=== PATIENT | female | born 1960 | race Caucasian/White ===

== ENCOUNTER 2017-01-29 10:36 | Emergency (ER) | payer MEDICAID ==
[~2017-01-29] VITALS: Ht 157.5 cm; Wt 57.0 kg
[2017-01-29] MEDS ORDERED: IBUP-2028 PO (10:59)
[2017-01-29] MEDS ORDERED: GLIP10TA10 PO (10:59)
[2017-01-29] MEDS ORDERED: ATOR20TA65 PO (10:59)
[2017-01-29] MEDS ORDERED: METF500T4 PO (10:59)
[2017-01-29] MEDS ORDERED: ACET-2178 PO (10:59)
[2017-01-29] MEDS ORDERED: KETOROLAC 30MG/ML VIAL IV STA (11:19)
[2017-01-29] MEDS ORDERED: SODIUM CHLORIDE 0.9% 1,000 ML IV ONE (11:19)
[2017-01-29 11:39] LABS: BASOPHILS % 0.5 % (0.0-2.0); EOSINOPHILS % 1.3 % (0.0-5.0); HEMATOCRIT. 41.7 % (36.0-48.0); HEMOGLOBIN. 14.3 g/dL (12.0-16.0); MEAN CORPUSCULAR HEMOGLOBIN 30.6 pg (28.0-32.0); MEAN CORPUSCULAR VOLUME 89.1 fL (81.0-99.0); MEAN PLATELET VOLUME 8.5 fl (7.4-10.4); MONOCYTES % 5.6 % (2.0-8.0); NEUTROPHILS % 61.6 % (40.0-76.0); PLATELET 244 x1000/uL (130-400); RED BLOOD CELL COUNT 4.68 mill/uL (4.2-5.4); RED CELL DISTRIBUTION WIDTH 12.8 % (11.6-14.6)
[2017-01-29 11:46] LABS: PROTHROMBIN TIME 10.9 sec (9.4-11.6)
[2017-01-29 11:53] LABS: CARBON DIOXIDE 27 mEq/L (21-32); CHLORIDE 103 mEq/L (98-107); TROPONIN I < 0.02 ng/mL (0.00-0.04)
[2017-01-29] MEDS ORDERED: GADOBENATE DIMEGLUMINE 529 MG/ML 10ML IV ONE (13:01)
[2017-01-29] MEDS ORDERED: MECLIZINE 25MG TABLET PO ONE (14:00)
[2017-01-29 14:03] VITALS: BP 125/81
[2017-01-29 14:33] LABS: CLARITY URINE CLEAR (CLEAR); COLOR URINE YELLOW (YELLOW); GLUCOSE URINE NEGATIVE (NEGATIVE); KETONES URINE NEGATIVE (NEGATIVE); LEUKOCYTE ESTERASE URINE NEGATIVE (NEGATIVE); NITRITE URINE NEGATIVE (NEGATIVE); OCCULT BLOOD URINE NEGATIVE (NEGATIVE); PROTEIN URINE NEGATIVE (NEGATIVE); SPECIFIC GRAVITY URINE 1.008 (1.005-1.030); UROBILINOGEN URINE 0.2 E.U./dL (0.2-1.0)
== END 2017-01-29 14:07 | disposition home or self-care (01) ==
LOC: ER 10:42
DX: R51 Headache (principal); E11.65 Type 2 diabetes mellitus with hyperglycemia; I10 Essential (primary) hypertension; E78.00 Pure hypercholesterolemia, unspecified; G51.0 Bell's palsy; F17.210 Nicotine dependence, cigarettes, uncomplicated; I45.10 Unspecified right bundle-branch block; Z88.6 Allergy status to analgesic agent; Z91.012 Allergy to eggs; Z98.51 Tubal ligation status; Z79.84 Long term (current) use of oral hypoglycemic drugs
CPT/HCPCS: 36415; 70553; 80053; 81003; 83880; 84484; 85025; 85610; 85651; 87086; 93005; 96361; 96374; 99285; A9577; J1885; J7030; Z7610; J8597